=== PATIENT | male | born 1955 | race Caucasian/White ===

== ENCOUNTER 2017-04-15 08:58 | Emergency (ER) | payer OTHER ==
[~2017-04-15] VITALS: Ht 167.6 cm; Wt 84.0 kg
[~2017-04-15 08:58] MED LIST: AMLODIPINE; ASPIRIN; FUROSEMIDE; GLIPIZIDE; LINAGLIPTIN; METOPROLOL; SIMVASTATIN
[2017-04-15 09:05] VITALS: Ht 167.6 cm; Wt 84.0 kg
[2017-04-15] MEDS ORDERED: ACETAMINOPHEN 325 MG TAB PO ONE (09:30)
[2017-04-15] MEDS ORDERED: FLUORESCEIN STRIP RIGHT EYE ONE (09:30)
[2017-04-15] MEDS ORDERED: TETRACAINE 0.5% 4 ML OPH RIGHT EYE ONE (09:30)
--- NOTE | 2017-04-15 09:31 | ERD ---
ER Documentation Chief Complaint Date/Time DATE: 04/15/17 TIME: 09:29 Chief Complaint feels like there is a foreign body to his right eye HPI 62-year-old male with a history of left-sided cataract, diabetes and hypertension presents the emergency department for complaint of a foreign body sensation to the right eye. 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 Patient states he is currently experiencing a sharp 8 out of 10 pain when blinking his eyelid and notes associated flashing of light. Patient denies other visual changes or blurred vision. He has not attempted to treat his pain symptoms at home. Patient also complains of discharge from the affected eye. Patient denies any fever, headache, dizziness, nausea, vomiting. Patient does not wear contacts. ROS All systems reviewed and are negative except as per history of present illness. Medications Home Meds Active Scripts Ibuprofen* (Motrin*) 600 Mg Tab, 600 MG PO Q6H Y for PAIN for 4 Days, TAB Prov:ZEESHAN KAUFFMAN PA-C 04/15/17 Hydrocodone/Acetaminophen ([place] 5-325 Tablet) 1 Each Tablet, 1 EACH PO Q6, #7 TAB Prov:ZEESHAN KAUFFMAN PA-C 04/15/17 Erythromycin* (Erythromycin* Ophthalmic) 1 Applic Oint, 1 APPLIC RIGHT EYE QID, #1 TUB Prov:ZEESHAN KAUFFMAN PA-C 04/15/17 Reported Medications [Tradjent] No Conflict Check 04/16/16 [Furosemide] No Conflict Check 04/16/16 [Glipizide] No Conflict Check 04/16/16 [Simvastatin] No Conflict Check 04/16/16 [Amlodipine] No Conflict Check 04/16/16 [Metoprolol] No Conflict Check 04/16/16 [Aspirin] No Conflict Check 04/16/16 Allergies Allergies: Coded Allergies: No Known Allergy (Unverified , 04/16/16) PMhx/Soc History of Surgery: Yes (EYE SX) Anesthesia Reaction: No Hx Neurological Disorder: No Hx Respiratory Disorders: No Hx Cardiac Disorders: Yes (HTN. HYPERLIPIDEMIA) Hx Psychiatric Problems: No Hx Miscellaneous Medical Probl: No Hx Alcohol Use: No Hx Substance Use: No Hx Tobacco Use: No Physical Exam Vitals Vital Signs Date Time Temp Pulse Resp B/P Pulse Ox O2 Delivery O2 Flow Rate FiO2 04/15/17 09:05 98.3 67 18 163/74 99 Physical Exam Const: Well-developed, well-nourished, in mild distress Head: Atraumatic Eyes: Diffuse redness, active mucopurulent discharge, tearing, and mild swelling of the right eye. EOMs intact. PERRLA. No surrounding. Orbital erythema or swelling. Visual acuity grossly intact. Visual keating intact. Corneal opacity, no obvious foreign body. Sclera injected. ENT: Normal External Ears, Nose and Mouth. Neck: Full range of motion..~ No meningismus. Resp: Clear to auscultation bilaterally Cardio: Regular rate and rhythm, no murmurs Abd: Soft, non tender, non distended. Normal bowel sounds Skin: No petechiae or rashes Back: No midline or flank tenderness Ext: No cyanosis, or edema Neur: Awake and alert Psych: Normal Mood and Affect Results 24 hrs Current Medications Medications (Trade) Dose Ordered Sig/Shanon Route PRN Reason Start Time Stop Time Status Last Admin Dose Admin Tetracaine HCl (Tetracaine 0.5% Steri-Unit Cynthia) 1 drop ONCE ONCE RIGHT EYE 04/15/17 09:30 04/15/17 09:31 DC 04/15/17 09:42 Fluorescein Sodium ([place]-D-Ogrvt) 1 strip ONCE ONCE RIGHT EYE 04/15/17 09:30 04/15/17 09:31 DC 04/15/17 09:42 Acetaminophen (Tylenol Tab) 650 mg ONCE ONCE PO 04/15/17 09:30 04/15/17 09:31 DC 04/15/17 09:41 Procedures/MDM Eye Exam: Visual Acuity: grossly intact. 20/200 bilaterally Visual [place]: Intact in all four quadrants bilaterally Lac ducts/glands: No swelling Lids w/ evertion: Inflamed, no foreign body Conj/[place]: diffuse erythema and inflammation. Centralized uptake fluorescein stain Anterior Chamber: Inflamed Tonopen readings: 50mm/gh bilaterally, however patient denies any headache , nausea, or vomiting. At this time low suspicion for acute angle-closure glaucoma. Patient numbed with topical tetracaine prior to exam with [facility] 62-year-old male with a history of diabetes and hypertension presents emergency department with foreign body sensation of the right eye. Physical exam consistent with corneal opacity versus infiltrate greater than 0.5 mm which is visible with penlight. The infiltrate stained with fluorescein. Patient with active mucopurulent discharge. There was no foreign body evident on exam. History and physical consistent with acute keratitis of the right eye. This condition requires urgent consult by ophthalmology. I will begin the patient with antibiotics and instruct him to follow-up with ophthalmology within 24 hours. Patient without symptoms of headache, nausea, or vomiting. At this time a low suspicion for acute narrow angle glaucoma, or intraocular foreign body. Patient does not wear contact lenses. Low suspicion for Pseudomonas infection. Upon visual acuity test, patient states he is only able to read the largest letter. Bilateral visual acuity measured 20/200. When taking the history, patient denied any acute loss of or blurred vision but did note some flashing of light. Based on patient's history of present illness and physical examination the decision was made to discharge. The patient was re-evaluated after ED treatment and stabilizing measures, and symptoms have improved. There is no evidence of life threatening injuries or illnesses at this time. On re-examination, patient resting in no distress, stable vital signs, reports feeling better and safe for discharge with outpatient follow up with [facility] today. Patient given return precautions. Departure Diagnosis: Primary Impression: Eye pain Laterality: right Qualified Code: H57.11 - Eye pain, right Additional Impression: Sensation of foreign body ZEESHAN KAUFFMAN PA-C April 15, 2017 09:31
[2017-04-15] MEDS ORDERED: IBUP-1542 PO (10:56)
[2017-04-15] MEDS ORDERED: HYDR-906 PO (10:56)
[2017-04-15] MEDS ORDERED: ERYTOPOI RIGHT EYE (10:56)
== END 2017-04-15 11:32 | disposition home or self-care (01) ==
LOC: FTE 08:58
DX: H57.11 Ocular pain, right eye (principal); E11.9 Type 2 diabetes mellitus without complications; I10 Essential (primary) hypertension; Z79.82 Long term (current) use of aspirin; Z79.84 Long term (current) use of oral hypoglycemic drugs
CPT/HCPCS: Z7502; Z7610; 99284